=== PATIENT | female | born 1955 | race Two or more races ===

== ENCOUNTER → 2024-11-19 | Outpatient (CLI) | payer MEDICAID ==
[2024-11-19 06:42] LABS: Alkaline Phosphatase 78 U/L (46-116); Anion Gap 5 (5-15); BUN/Creatinine Ratio 11.2 (10.0-20.0); Blood Urea Nitrogen 10 mg/dL (9-23); Calcium 9.6 mg/dL (8.7-10.4); Carbon Dioxide 28 mmol/L (20-31); Glucose 102 mg/dL (74-106); Potassium 4.3 mmol/L (3.5-5.1); Sodium 143 mmol/L (136-145); Triglycerides 87 mg/dL (< 150)
[2024-11-19 06:43] LABS: Albumin 4.2 g/dL (3.2-4.8); Bilirubin, Total 0.8 mg/dL (0.2-1.0); Cholesterol 173 mg/dL (< 200); Total Protein 7.1 g/dL (5.7-8.2)
[2024-11-19 06:47] LABS: Chloride 110 mmol/L (98-107)
[2024-11-19 06:48] LABS: Alanine Aminotransferase 236 U/L (7-40); Aspartate Aminotransferase 115 U/L (13-40); HDL Cholesterol 63 mg/dL (40-59); LDL Cholesterol 102 mg/dL (< 100)
== END | disposition home or self-care (01) ==
LOC: LAB 06:05
PROVIDERS: ATTEND Nurse Practitioner Family
DX: Z00.01 Encounter for general adult medical examination with abnormal findings (principal); I10 Essential (primary) hypertension; R73.9 Hyperglycemia, unspecified
CPT/HCPCS: 36415; 80053; 80061; 82043; 83036; 84443

== ENCOUNTER → 2024-11-26 | Outpatient (CLI) | payer MEDICAID | END | disposition home or self-care (01) | LOC: LAB 07:27 | PROVIDERS: ATTEND Nurse Practitioner Family | DX: Z00.01 Encounter for general adult medical examination with abnormal findings (principal); I10 Essential (primary) hypertension; R73.9 Hyperglycemia, unspecified | CPT/HCPCS: 82270 ==

== ENCOUNTER → 2024-12-04 | Outpatient (CLI) | payer MEDICAID ==
[2024-12-04 12:10] LABS: Albumin 4.7 g/dL (3.2-4.8); Bilirubin, Direct 0.3 mg/dL (<0.3); Bilirubin, Total 0.9 mg/dL (0.2-1.0); Total Protein 7.3 g/dL (5.7-8.2)
[2024-12-06 08:48] LABS: Hepatitis B Surface Antigen Negative (Negative)
[2024-12-06 09:08] LABS: Hepatitis A Ab IgM Negative; Hepatitis B Core IgM Negative (Negative); Hepatitis C Antibody Negative (Negative)
== END | disposition home or self-care (01) ==
LOC: LAB 10:48
PROVIDERS: ATTEND Nurse Practitioner Family
DX: R74.01 Elevation of levels of liver transaminase levels (principal)
CPT/HCPCS: 36415; 80076; 86705; 86709; 86803; 87340

== ENCOUNTER → 2025-09-20 | Day surgery (SDC) | payer MEDICAID ==
[2025-09-17 12:31] LABS: Hematocrit 46.3 % (36.0-46.0); Hemoglobin 15.9 g/dL (12.2-16.2); Mean Corpuscular Hemoglobin 29.9 pg (28.0-32.0); Mean Corpuscular Volume 87.4 fL (80.0-100.0); Nucleated Red Blood Cells % 0.0 %
[2025-09-17 12:41] LABS: Urine Protein, UAD Negative (Negative)
[2025-09-17 12:52] LABS: INR 1.03 (0.9-1.15); Partial Thromboplastin Time 27.8 SEC (24.5-34.5); Prothrombin Time 10.9 sec (9.3-11.8)
[2025-09-17 13:29] LABS: Albumin 4.5 g/dL (3.2-4.8); Alkaline Phosphatase 65 U/L (46-116); Anion Gap 11 (5-15); BUN/Creatinine Ratio 15.1 (10.0-20.0); Bilirubin, Total 0.5 mg/dL (0.2-1.0); Blood Urea Nitrogen 13 mg/dL (9-23); Calcium 10.3 mg/dL (8.7-10.4); Carbon Dioxide 30 mmol/L (20-31); Chloride 104 mmol/L (98-107); Glucose 88 mg/dL (74-106); Potassium 4.7 mmol/L (3.5-5.1); Sodium 145 mmol/L (136-145); Total Protein 7.4 g/dL (5.7-8.2)
[2025-09-17 13:30] LABS: Alanine Aminotransferase 84 U/L (7-40)
--- NOTE | 2025-09-17 22:37 | DVHHP ---
ADMIT DATE: 09/20/2025 PREADMIT HISTORY AND PHYSICAL CHIEF COMPLAINT: Postmenopausal bleeding. HISTORY OF PRESENT ILLNESS: The patient is a 70-year-old 2, para 2, admitted for D and C, hysteroscopy. The patient had some postmenopausal bleeding light for 1 day approximately 5 months ago. After that, she did not have any bleeding. Her ultrasound reveals 8 x 4 x 5 cm uterus. Endometrial thickness is 3.2 cm. Endometrium demonstrates cystic space and vascularity. PAST MEDICAL HISTORY: Questionable prediabetic. PAST SURGICAL HISTORY: Elbow surgery, tubal ligation. SOCIAL HISTORY: None. FAMILY HISTORY: None. OBSTETRIC AND GYNECOLOGIC HISTORY: Two normal vaginal deliveries. REVIEW OF SYSTEMS: Consistent with HPI. PHYSICAL EXAMINATION: VITAL SIGNS: Stable, afebrile. HEENT: Within normal limits. CARDIOVASCULAR: Regular rate and rhythm. LUNGS: Clear to auscultation. BREASTS: Symmetrical. No masses. ABDOMEN: Soft, nontender. PELVIC: External genitalia within normal limits. Vagina normal. Cervix grossly normal appearing. Uterus 8-week size. Adnexa nonpalpable. EXTREMITIES: No clubbing, cyanosis or edema. IMPRESSION: * Endometrial hyperplasia. * Postmenopausal bleeding, which has resolved. PLAN: D and C, hysteroscopy. Informed consent obtained. Risks, complications of surgery including infection, bleeding, perforation of uterus, risk of anesthesia discussed with the patient. Options reviewed. All questions answered. The patient fully understands. She wishes to proceed with planned procedure. DO IMER Pan TID: [id number] RECEIPT: [id number]
[~2025-09-20] VITALS: Ht 170.2 cm; Wt 79.4 kg
[~2025-09-20] MED LIST: ALEN70SO2 OR; HYDROmorphone HCL 2 MG/ML VL/or syr IV PRN; IBUP-1456 PO; KETAMINE 50mg/ML 1ml syringe ONE; KETOROLAC TROMETH 30 MG/ML 1ML VIAL IV ONE; LACTATED RINGER'S 1,000 ML IV SCH; LIDOCAINE 1% INJ PF 5ML AMP ONE; LIDOCAINE HCL 2% TOP JELLY 5ML TOP ONE; MEPERIDINE HCL (25 MG/ML) 1ML VIAL ONE; METOCLOPRAMIDE HCL 5MG/ml INJ 2ml VIAL IV PRN; MIDAZOLAM HCL 2MG/2ML 2ml VIAL (1mg/ml) ONE; MORPHINE SULFATE 4 MG/ML SYR/VIAL IV PRN; MORPHINE SULFATE INJ 2 MG/ml SYRG IV PRN; ONDANSETRON HCL 4 MG/2 ML VIAL IV PRN; ONDANSETRON HCL 4 MG/2 ML VIAL ONE; PROPOFOL 10 MG/ML 20 ML IV ONE; SODIUM CHLORIDE LOCK 10 ML ONE; ZOFR4T PO; ceFAZolin 2 GM/D5W50ml 50 ML IV ONE; fentaNYL CITRATE 100 MCG/2 ML VL ONE
[2025-09-20 09:47] VITALS: PULSE 82; RESP 15; TEMP 97.3; O2SAT 98
--- NOTE | 2025-09-20 09:54 | DVHOP2 ---
Operative Report DATE OF OPERATION: 09/20/25 PREOPERATIVE DIAGNOSES: POSTMENOPAUSAL BLEEDING,ENDOMETRIAL HYPERPLASIA POSTOPERATIVE DIAGNOSES: NO EVIDENCE OF ENDOMETRIAL HYPERPLASIA,ENDOCERVICAL POLYP SURGEON: Nannette Parks D.O. ANESTHESIOLOGIST: JOSE TYPE OF ANESTHESIA : MAC CONSENT: The patient was informed of the risks and benefits of the procedure. The patient was informed of the risks and benefits of the procedure. These include but are not limited to , complications of anesthesia, postoperative infection, incomplete relief of symptoms, recurrence of symptoms, damage to blood vessels, nerves and tendons, deep venous thrombosis, pulmonary embolism and possible need for repeat surgery in the future. FINDINGS: ATROPHIC endometrium,7WKS SIZE uterus WITH 2ND DEG UTERINE PROLAPSE Cervix, Bulbous, [place], and urethrovesical glands appeared normal. SPECIMEN: ENDOCXAL POLYP and EMC COMPLICATIONS: None. BLOOD PRODUCTS USED: None. PROCEDURES: Hysteroscopy and dilatation and curettage. PROCEDURE IN DETAIL: The patient was taken to the operating room and placed in supine position. General anesthesia was performed without difficulty. She was then placed in Peyman stirrups and prepped and draped in sterile fashion. Examination under anesthesia showed her to have a uterus, 7WKS SIZE WITH 2ND DGE UTERIENE PROLAPSE.THERE WAS A ENDOCXAL POLYP WHICH WAS LARGE AND THERE WAS NO HYPERPLASIA OF ENDOMETRIUM. Bulbous, [place], and urethrovesical glands appeared normal. A weighted speculum was placed posteriorly and right-angle Diya anteriorly. Cervix was identified and grasped with a sharp tooth tenaculum. Uterus sounded her to approximately 7 cm. ENDOMETRIAL CURRETTING WAS DONE ENDOMETRIUM WAS ATROPHIC AFTER SURVEYING THE UTERUS WITH HYSTEROSCOPE. No bleeding was noted. All instruments were removed. The patient was taken to recovery room in stable condition. CONDITION: The patient is stable and guarded. ESTIMATED BLOOD LOSS: 20 mL Visit Coding OBGYN Date of Service: Sep 20, 2025 Billing Provider: NANNETTE PARKS DO LICENSED REACTOR OPERATOR Common Visit Codes: 64806-KZCGUET INP/OBS CARE (HIGH) LICENSED REACTOR OPERATOR Procedure Codes: [id number], SURGICAL NANNETTE PARKS DO Sep 20, 2025 09:54
--- NOTE | 2025-09-20 09:58 | DVHDS2 ---
Physician Discharge Progress N Final Diagnosis: pmb,ENDOMETRIAL HYPERPLASIA Operations or Procedures: Operations or Procedures D AND C,HYSTEROSCOPY,POLYPECTOMY Condition on Discharge: Good Disposition: Home Discharge Instructions: Diet: Regular Activity: Light activity Follow Up/Referral: 1wk as sched Medications: estela nicolas Follow Up Care: Specialist: 1WK SCHED Discharge Statement: "Patient was advised to return to the ER or call 911 if any headaches, dizziness, shortness of breath, chest pain, abdominal pain, bleeding, fevers, or worsening of medical condition. Patient was counseled about treatment plan, medications, possible side effects, patientverbalized understanding. All questions were answered to the best of my ability. This discharge took greater then 30 minutes in planning, reviewing documentation, counseling the patient, and discussing with other team members." Visit Coding OBGYN Date of Service: Sep 20, 2025 Billing Provider: HAYLEY LAURENT DO PACKAGING MACHINE SUPPLIES DISTRIBUTOR Common Visit Codes: 32866-IARYOTN INP/OBS CARE (HIGH) PACKAGING MACHINE SUPPLIES DISTRIBUTOR Procedure Codes: 16885-P&C, DIAG OR THERAPEUTIC HAYLEY LAURENT DO Sep 20, 2025 09:58
--- NOTE | 2025-09-20 09:59 | POSTOP ---
Post-Operative Note Post-Operative Note Preop Diagnosis PMB,ENDOMETRIAL HYPERPLASIA Postop Diagnosis: pmb,ENDOMETRIAL HYPERPLASIA Operation performed D AND C,HYSTEROSCOPY,POLYPECTOMY Specimen EMC,CXAL POLYP Anesthesia: Mac Anesthesiologist: JOSE Blood Loss(fluid mgmt) 20ML Surgeon Hayley Parks Implant NA Complications & Mgmt NONE Date 09/20/25 Time 09:58 Visit Coding OBGYN Date of Service: Sep 20, 2025 Billing Provider: HAYLEY PARKS DO TEACHER COUNSELOR Common Visit Codes: 55019-PRLBTLR INP/OBS CARE (HIGH) TEACHER COUNSELOR Procedure Codes: [id number], SURGICAL HAYLEY PARKS DO Sep 20, 2025 09:59
[2025-09-20 10:17] VITALS: O2SAT 96
[2025-09-20 10:47] VITALS: BP 133/61; PULSE 62; RESP 16; O2SAT 95
[2025-09-20] MEDS: ONDANSETRON HCL 4 MG/2 ML VIAL IV ONE (10:49)
[2025-09-20] MEDS: METOCLOPRAMIDE HCL 5MG/ml INJ 2ml VIAL IV ONE (11:05)
== END | disposition home or self-care (01) ==
LOC: SUR 07:35
PROVIDERS: ATTEND Obstetrics & Gynecology
DX: N95.0 Postmenopausal bleeding (principal); N84.1 Polyp of cervix uteri; M81.0 Age-related osteoporosis without current pathological fracture; Z98.51 Tubal ligation status; Z98.890 Other specified postprocedural states; Z79.899 Other long term (current) drug therapy
CPT/HCPCS: 36415; 58558; 80053; 81001; 84702; 85025; 85610; 85730; 86850; 86900; 86901; 88305; J0690; J1100; J2175; J2250; J2405; J2704; J2765; J3010